=== PATIENT | female | born 2000 | race Caucasian/White ===

== ENCOUNTER 2021-05-08 17:22 | Emergency (ER) | payer BC, SELFPAY ==
[2021-05-08 17:36] VITALS: BP 128/82; BP 132/82; PULSE 109; PULSE 110; RESP 18; TEMP 37.7; O2SAT 100; O2SAT 98; BMI 24.0
[2021-05-08 18:08] LABS: IDNOW Serial# 9DD0AD1C; Strep A Nucleic Acid Negative (Negative)
--- NOTE | 2021-05-08 18:09 | ED_ITS ---
HPI - URI/Sore Throat General Stated Complaint: DIZZY,FEVER X'S 7 DAYS Time Seen by Provider: 05/08/21 17:36 Source: patient Mode of arrival: EMS Limitations: no limitations History of Present Illness HPI Narrative: With no significant past medical history already been vaccinated against COVID-19 came from the [facility] for been sick for last 5 days with cold sore throat congestion low-grade fever body aches been tested for COVID-19 negative of the students were also sick in the [facility]. Cough is mostly dry Related Data Previous Rx's Medication Instructions Recorded amoxicillin 875 mg-potassium 1 tab PO BID #20 tab 05/08/21 clavulanate 125 mg tablet (Augmentin) codeine 10 mg-guaifenesin 100 mg/5 5 ml PO Q6H PRN #120 ml 05/08/21 mL oral liquid (Guaiatussin AC) Allergies Allergy/AdvReac Type Severity Reaction Status Date / Time No Known Allergies Allergy Verified 05/08/21 17:35 Review of Systems Review of Systems: Yes all other systems are reviewed and are negative [facility] Past Medical History Medical History Patient denies medical problems Social History Social History Advance Directives: No Advance Directives Information Provided: No Patient : No Physical Exam Vital Signs: Vital Signs: Last Vital Signs Temp 99.8 F 05/08/21 17:36 Pulse 109 H 05/08/21 17:36 Resp 18 05/08/21 17:36 BP 128/82 05/08/21 17:36 Pulse Ox 100 05/08/21 17:36 Body Mass Index 24.0 Appearance: Alert. Oriented X3. No acute distress. Eyes: No pallor or icterus ENT: Erythema around the tonsils and posterior pharynx, Oral Mucosa moist Neck: Normal inspection. Neck supple. CVS: Normal heart rate and rhythm. Pulses normal. Respiratory: No respiratory distress. Equal air entry bilateral, no wheezing/rales/rhonchi Abdomen: Soft and nontender. Bowel sounds are present, Skin: Skin warm and dry. Normal skin color. Normal skin turgor. Extremities: No lower extremity edema. No calf tenderness Neuro: Oriented X 3. MDM - URI/Sore Throat Lab Data Attestation: I reviewed the patient's lab results. Labs: Lab Results 05/08/21 05/08/21 Range/Units 17:46 17:46 Influenza Type A (PCR) NEGATIVE (Negative) Influenza Type B (PCR) NEGATIVE (Negative) RSV RNA Qual (PCR) NEGATIVE (Negative) SARS-CoV-2 RNA (RT-PCR) NEGATIVE (Negative) S. pyogenes GrpA MEHDI Negative (Negative) Discharge Plan Discharge Clinical Impression: Acute pharyngitis Qualifiers: Pharyngitis/tonsillitis etiology: other specified organisms Qualified Code(s): J02.8 - Acute pharyngitis due to other specified organisms Patient Disposition: Home, Self-Care Instructions: Upper Respiratory Infection (ED) Additional Instructions: Etiology of your symptoms not very clear COVID, flu, RSV, strep test are negative Take antibiotic as prescribed Cough syrup as prescribed Drink plenty of fluids Tylenol/Motrin for fever Prescriptions: New amoxicillin-pot clavulanate [Augmentin] 875-125 mg tablet 1 tab PO BID Qty: 20 RF: 0 codeine-guaifenesin [Guaiatussin AC] 10-100 mg/5 mL liquid 5 ml PO Q6H PRN (Reason: cough) Qty: 120 RF: 0
[2021-05-08 18:33] LABS: Influenza A PCR NEGATIVE (Negative); Influenza B PCR NEGATIVE (Negative); Resp Syncy Virus RNA Qual PCR NEGATIVE (Negative); SARS COV2 PCR INHOUSE NEGATIVE (Negative)
[2021-05-08] MEDS: Amoxicillin/Potassium Clav 875 MG TABLET PO (19:38)
== END 2021-05-08 19:54 | disposition home or self-care (01) ==
PROVIDERS: Emergency Provider Internal Medicine
DX: J02.8 Acute pharyngitis due to other specified organisms (principal); R50.9 Fever, unspecified; R53.81 Other malaise; Z20.822 Contact with and (suspected) exposure to COVID-19
CPT/HCPCS: 0241U; 36415; 87651; 99282; 99283